=== PATIENT | female | born 1985 | race Caucasian/White ===

== ENCOUNTER 2023-06-08 09:37 | Emergency (ER) | payer MEDICAID ==
[~2023-06-08] VITALS: Ht 152.4 cm; Wt 63.5 kg
[2023-06-08 09:50] VITALS: O2SAT 100
[2023-06-08 10:08] LABS: *BILIRUBIN,URIN NEGATIVE (NEGATIVE); *BLOOD, URINE 3+ (NEGATIVE); *CLARITY,URINE CLEAR (CLEAR); *COLOR,URINE YELLOW (YELLOW); *KETONES,URINE NEGATIVE (NEGATIVE); *PROTEIN,URINE NEGATIVE (NEGATIVE); *UROBILINOGEN,URINE 0.2 E.U./dl (NORMAL); LEUKOCYTE ESTERASE ,URINE NEGATIVE (NEGATIVE); NITRITE, URINE NEGATIVE (NEGATIVE); UGLUCOSE NEGATIVE (NEGATIVE)
[2023-06-08 10:09] LABS: *URINE HCG, QUAL NEGATIVE (NEGATIVE)
[2023-06-08 10:29] LABS: BACTERIA,URINE MODERATE /HPF (NONE SEEN); SQUAMOUS EPITHELIAL CELL,UR MANY /HPF (NONE SEEN); WBC,URINE 0-3 /HPF (0-3)
[2023-06-08] MEDS ORDERED: SULF1TAB48 PO (11:03)
[2023-06-11 13:09] LABS: *TRIC.VAG. NAA Negative (Negative)
[2023-06-11 22:06] LABS: *CHLAMYDIA NAA Negative (Negative); *GC NAA Negative (Negative)
== END 2023-06-08 11:51 | disposition home or self-care (01) ==
LOC: ER 09:37
DX: N30.90 Cystitis, unspecified without hematuria (principal); R31.9 Hematuria, unspecified; R10.2 Pelvic and perineal pain; Z79.899 Other long term (current) drug therapy
CPT/HCPCS: 84703; 87491; A4606; A4663